=== PATIENT | female | born 1935 | race Caucasian/White ===

== ENCOUNTER 2017-03-24 10:51 | Observation (INO) ==
[2017-03-24] MEDS ORDERED: NITROGLYCERIN 2% OINT 1 INCH/GM PACK TOP STA ×2 (11:36→14:42)
[2017-03-24] MEDS ORDERED: ASPIRIN 325 MG TABLET PO STA (11:36)
[2017-03-24] MEDS ORDERED: ONDANSETRON 4 MG/2 ML VIAL IV STA (11:59)
[2017-03-24] MEDS ORDERED: fentaNYL 100 MCG/2 ML VIAL IV STA (12:00)
[2017-03-24 12:18] LABS: Basophils % 0.2 % (0.0-0.8); Eosinophils % 0.5 % (0.00-10.9); Hematocrit 36.6 VOL% (35.7-47.0); Hemoglobin 11.8 GM/DL (12.0-16.0); Immature Granulocytes % 0.5 %; Immature Granulocytes Absolute 0.03 #; Lymphocytes # 0.8 10*3/uL (1.4-4.0); Lymphocytes % 14.2 % (21.3-54.2); Mean Corpuscular HGB Conc 32.2 GM/DL (32-36); Mean Corpuscular Hemoglobin 28 PG (27-34); Mean Corpuscular Volume 87.6 FL (87-102); Mean Platelet Volume 11.6 FL (9.6-12.0); Monocytes # 1.4 10*3/uL (0.11-0.8); Monocytes % 24.8 % (1.7-12.7); Neutrophils # 3.4 10*3/uL (1.4-7.4); Neutrophils % 59.8 % (38.7-73.9); Platelet Count 167 T/CUMM (130-400); Red Blood Count 4.18 MC/CUMM (3.8-5.5); Red Cell Distribution Width 15.5 % (9.3-17.3); White Blood Count 5.6 T/CUMM (4-12)
[2017-03-24] MEDS ORDERED: NITROGLYCERIN 2% OINT 1 INCH/GM PACK TOP ONE (12:21)
[2017-03-24] MEDS ORDERED: fentaNYL 100 MCG/2 ML VIAL ONE (12:21)
[2017-03-24] MEDS ORDERED: ONDANSETRON 4 MG/2 ML VIAL ONE (12:21)
[2017-03-24] MEDS ORDERED: ASPIRIN 325 MG TABLET ONE (12:22)
[2017-03-24 12:29] LABS: PT Patient Result 10.5 SECS; Partial Thromboplastin Time 25.7 SECS (0-40)
[2017-03-24 12:50] LABS: Albumin 3.4 G/DL (3.4-5.0); Bilirubin,Total 0.6 MG/DL (0.2-1.0); Calcium 8.2 MG/DL (8.5-10.1); Osmolality,Calculated 280.3 MOS/KG (273-304); Potassium 3.9 MMOL/L (3.5-5.1)
[2017-03-24] MEDS ORDERED: MAGNESIUM SULF RIDER 4 GM in PREMIX 1 EACH IV PRN (12:55)
[2017-03-24] MEDS ORDERED: MAGNESIUM SULF RIDER 2 GM in PREMIX 1 EACH IV PRN ×3 (12:55→14:38)
[2017-03-24] MEDS ORDERED: SODIUM CHLORIDE 0.9% 1,000 ML IV SCH (13:00)
[2017-03-24 13:07] LABS: Band Neutrophils 1 % (0-10); Hypochromasia 1+; Lymphocytes 14 % (20-55); Platelet Estimate Adequate; Segmented Neutrophils 69 % (50-85); Total Cells Counted 100
[2017-03-24] MEDS ORDERED: ENOXAPARIN 80 MG/0.8 ML SYRINGE SUBCUT STA (13:08)
[2017-03-24] MEDS ORDERED: ENOXAPARIN 80 MG/0.8 ML SYRINGE SUBCUT ONE (13:50)
[2017-03-24] MEDS ORDERED: POTASSIUM CHLORIDE RIDER 10 MEQ in PREMIX 1 EACH IV PRN ×2 (14:34→14:38)
[2017-03-24 15:25] LABS: Free T4 (Free Thyroxine) 0.99 NG/DL (0.76-1.46); Thyroid Stimulating Hormone 2.11 uIU/ml (0.358-3.74)
[2017-03-24] MEDS ORDERED: NITROGLYCERIN SL 0.4 MG TABLET SL PRN (18:46)
[2017-03-24] MEDS ORDERED: FUROSEMIDE 20 MG/2 ML VIAL IV ONE (19:01)
[2017-03-24] MEDS: NITROGLYCERIN 2% OINT 1 INCH/GM PACK TOP SCH (19:20)
[2017-03-24] MEDS ORDERED: ROSUVASTATIN 10 MG TABLET PO SCH (21:00)
[2017-03-24] MEDS ORDERED: CHLORHEXIDINE 0.12% ORAL RINSE 60 ML BOTTLE SWISH/SPIT SCH (21:00)
[2017-03-24] MEDS ORDERED: TICAGRELOR 90 MG TABLET PO SCH (21:00)
[2017-03-24] MEDS: ACETAMINOPHEN/CODEINE 300-30 MG TABLET PO SCH (22:38)
[2017-03-24] MEDS: CLINDAMYCIN 150 MG CAPSULE PO SCH (22:38)
[2017-03-24] MEDS: ONDANSETRON ODT 4 MG TABLET PO SCH (22:38)
[2017-03-24] MEDS: TICAGRELOR 90 MG TABLET PO SCH (22:42)
[2017-03-24] MEDS: CHLORHEXIDINE 0.12% ORAL RINSE 60 ML BOTTLE SWISH/SPIT SCH (22:44)
[2017-03-25] MEDS: NITROGLYCERIN 2% OINT 1 INCH/GM PACK TOP SCH ×2 (00:50→07:19)
[2017-03-25] MEDS: CLINDAMYCIN 150 MG CAPSULE PO SCH ×4 (01:32→17:40)
[2017-03-25] MEDS: ACETAMINOPHEN/CODEINE 300-30 MG TABLET PO SCH ×4 (01:32→17:50)
[2017-03-25] MEDS: ONDANSETRON ODT 4 MG TABLET PO SCH (01:32)
[2017-03-25] MEDS ORDERED: ONDANSETRON 4 MG/2 ML VIAL IV PRN (01:59)
[2017-03-25] MEDS ORDERED: NITROGLYCERIN DRIP 50 MG/250 ML BOTTLE IV SCH (02:00)
[2017-03-25 05:01] LABS: Basophils % 0.2 % (0.0-0.8); Eosinophils % 0.6 % (0.00-10.9); Hematocrit 33.1 VOL% (35.7-47.0); Hemoglobin 10.4 GM/DL (12.0-16.0); Immature Granulocytes % 0.4 %; Immature Granulocytes Absolute 0.02 #; Lymphocytes # 0.5 10*3/uL (1.4-4.0); Lymphocytes % 9.7 % (21.3-54.2); Mean Corpuscular HGB Conc 31.4 GM/DL (32-36); Mean Corpuscular Hemoglobin 28 PG (27-34); Mean Corpuscular Volume 89.2 FL (87-102); Mean Platelet Volume 11.4 FL (9.6-12.0); Monocytes # 1.2 10*3/uL (0.11-0.8); Monocytes % 21.5 % (1.7-12.7); Neutrophils # 3.7 10*3/uL (1.4-7.4); Neutrophils % 67.6 % (38.7-73.9); Platelet Count 153 T/CUMM (130-400); Red Blood Count 3.71 MC/CUMM (3.8-5.5); Red Cell Distribution Width 15.6 % (9.3-17.3); White Blood Count 5.4 T/CUMM (4-12)
[2017-03-25 05:24] LABS: Calcium 7.7 MG/DL (8.5-10.1); Magnesium 1.8 MG/DL (1.8-2.4)
[2017-03-25 05:37] LABS: Hypochromasia 1+; Lymphocytes 14 % (20-55); Microcytosis 1+; Segmented Neutrophils 70 % (50-85); Total Cells Counted 100
[2017-03-25 05:38] LABS: Ovalocytes Few; Platelet Estimate Adequate
[2017-03-25] MEDS ORDERED: LEVOTHYROXINE 88 MCG TABLET PO SCH (07:00)
[2017-03-25 07:10] LABS: Calcium 7.7 MG/DL (8.5-10.1); Magnesium 1.8 MG/DL (1.8-2.4); Osmolality,Calculated 283.1 MOS/KG (273-304); Potassium 3.9 MMOL/L (3.5-5.1)
[2017-03-25] MEDS ORDERED: diphenhydrAMINE CAP 25 MG CAPSULE PO ONE (08:30)
[2017-03-25] MEDS ORDERED: DIAZEPAM 5 MG TABLET PO ONE (08:30)
[2017-03-25] MEDS ORDERED: fentaNYL 100 MCG/2 ML VIAL ONE (08:50)
[2017-03-25] MEDS ORDERED: MIDAZOLAM 2 MG/2 ML VIAL ONE (08:50)
[2017-03-25] MEDS ORDERED: HEPARIN/NACL 0.9% 2 UNITS/ML 2,000 ML IV ONE (08:50)
[2017-03-25] MEDS ORDERED: LIDOCAINE 1% 20 ML VIAL ONE (08:50)
[2017-03-25] MEDS ORDERED: EZETIMIBE 10 MG TABLET PO SCH ×2 (09:00)
[2017-03-25] MEDS ORDERED: ASPIRIN EC 81 MG TABLET PO SCH ×2 (09:00)
[2017-03-25] MEDS ORDERED: METOPROLOL SUCCINATE XL 50 MG TABLET PO SCH ×2 (09:00)
[2017-03-25] MEDS: CHLORHEXIDINE 0.12% ORAL RINSE 60 ML BOTTLE SWISH/SPIT SCH (09:00)
[2017-03-25] MEDS ORDERED: CELECOXIB 200 MG CAPSULE PO SCH (09:00)
[2017-03-25] MEDS ORDERED: SERTRALINE 100 MG TABLET PO SCH ×2 (09:00)
[2017-03-25] MEDS ORDERED: ISOSORBIDE MONONITRATE 30 MG TABLET PO SCH (11:00)
[2017-03-25] MEDS: TICAGRELOR 90 MG TABLET PO SCH (15:28)
[2017-03-25 18:28] VITALS: BP 123/64
== END 2017-03-25 18:10 | disposition home or self-care (01) ==
LOC: N.ED 10:51 → N.EDINP 10:51 → N.TELEN 18:15 → N.CC 03-25 01:41
PROVIDERS: ADMIT Internal Medicine Cardiovascular Disease; ATTEND Internal Medicine Cardiovascular Disease
PROC: CLCCHCL (ICD-10-PCS; 2017-03-25 09:15)